=== PATIENT | female | born 1995 | race Caucasian/White ===

== ENCOUNTER 2023-10-16 07:36 | Inpatient (IN) | payer BC ==
[2023-10-16] MEDS ORDERED: Sodium Chloride 0.9% 10 ML Syringe FLUSH PRN (11:53)
[2023-10-16] MEDS ORDERED: Lidocaine 1% 50 ML MDV INJECT PRN (11:53)
[2023-10-16] MEDS ORDERED: Acetaminophen 325 MG Tab PO PRN (11:53)
[2023-10-16] MEDS: Nalbuphine HCl 10 MG/ 1ML Amp IVPUSH PRN (12:04)
[2023-10-16 12:13] LABS: BASOPHILS PERCENT AUTO 0.2 % (0.0-1.0); EOSINOPHILS ABSOLUTE AUTO 0.1 K/mm3 (0.0-0.4); EOSINOPHILS PERCENT AUTO 0.7 % (0.0-6.0); HEMATOCRIT 40.3 % (37.0-47.0); IMMATURE GRAN ABSOLUTE AUTO 0.12 K/mm3 (0.00-0.05); IMMATURE GRAN PERCENT AUTO 0.6 % (0.0-0.4); LYMPHOCYTES ABSOLUTE AUTO 2.1 K/mm3 (1.0-4.8); LYMPHOCYTES PERCENT AUTO 10.5 % (24.0-44.0); MEAN CORPUSCULAR HEMOGLOBIN 30.3 pg (28.0-32.0); MEAN CORPUSCULAR HGB CONC 34.7 g/dl (32.0-36.0); MEAN CORPUSCULAR VOLUME 87.2 fl (83.0-99.0); MEAN PLATELET VOLUME 9.6 fl (9.4-12.3); MONOCYTES ABSOLUTE AUTO 0.8 K/mm3 (0.0-0.8); MONOCYTES PERCENT AUTO 4.1 % (0.0-8.0); NEUTROPHILS PERCENT AUTO 83.9 % (41.0-71.0); PLATELET COUNT,PLT 238 K/mm3 (150-400); RED BLOOD CELL COUNT 4.62 M/mm3 (4.10-5.30); WHITE BLOOD CELL COUNT,WBC 20.27 K/mm3 (3.9-11.3)
[2023-10-16] MEDS: Lactated Ringers 1,000 ML IV SCH (13:58)
[2023-10-16] MEDS ORDERED: Phenylephrine 1% 10 MG/ML SDV IVPUSH PRN (14:26)
[2023-10-16] MEDS ORDERED: ePHEDrine 50 MG/ML SDV IVPUSH PRN (14:26)
[2023-10-16] MEDS ORDERED: diphenhydrAMINE 50 MG/ML SDV IVPUSH PRN (14:26)
[2023-10-16] MEDS: fentaNYL 100 MCG/2 ML SDV EPIDUR PRN (14:30)
[2023-10-16] MEDS: Bupivacaine/fentaNYL/NS 100 ML Bag EPIDUR PRN (14:32)
[2023-10-16] MEDS: fentaNYL 100 MCG/2 ML SDV ONE (17:28)
[2023-10-16] MEDS: Oxytocin/Lactated Ringers 30 UNIT/500 ML BAG IV SCH (22:25)
[2023-10-17] MEDS ORDERED: Magnesium Hydroxide 400 MG/5 ML Susp 30 ML Cup PO PRN (00:15)
[2023-10-17] MEDS ORDERED: Oxytocin/Lactated Ringers 30 UNIT/500 ML BAG IV SCH (00:15)
[2023-10-17] MEDS ORDERED: Hydrocortisone Acetate 25 MG Supp RECTAL PRN (00:15)
[2023-10-17] MEDS ORDERED: Docusate Sodium 100 MG Cap PO PRN (00:15)
[2023-10-17] MEDS: Witch Hazel Medicated Pads 40/Jar TOP PRN (00:36)
[2023-10-17] MEDS: Benzocaine/Menthol 20%-0.5% Spray 78 GM Cannister TOP PRN (00:37)
[2023-10-17] MEDS: Ibuprofen 600 MG Tab PO PRN (04:31)
[2023-10-17] MEDS: Prenatal Multivitamin with Calcium/Folic Acid/Iron Tab PO SCH (09:03)
[2023-10-17] MEDS: Sodium Chloride 0.9% 10 ML Syringe FLUSH SCH (09:03)
[2023-10-17] MEDS: Acetaminophen 325 MG Tab PO PRN (22:39)
== END 2023-10-18 10:20 | disposition home or self-care (01) | DRG 560 ==
LOC: JD.OBCHECK 07:36 → JD.OB 07:40 → JD.OBCHECK 10:45 → JD.OB 10:45 → OBSVTOIN 22:13 → JD.OB 22:14
PROVIDERS: ADMIT Obstetrics & Gynecology; ATTEND Obstetrics & Gynecology
PROC: 10E0XZZ Delivery of Products of Conception, External Approach (ICD-10-PCS; principal; 2023-10-16)
PROC: 0KQM0ZZ Repair Perineum Muscle, Open Approach (ICD-10-PCS; 2023-10-16)
PROC: 10907ZC Drainage of Amniotic Fluid, Therapeutic from Products of Conception, Via Natural or Artificial Opening (ICD-10-PCS; 2023-10-16)
PROC: 3E0R3BZ Introduction of Anesthetic Agent into Spinal Canal, Percutaneous Approach (ICD-10-PCS; 2023-10-16)
PROC: 00HU33Z Insertion of Infusion Device into Spinal Canal, Percutaneous Approach (ICD-10-PCS; 2023-10-16)
DX: O99.52 Diseases of the respiratory system complicating childbirth (principal); J45.909 Unspecified asthma, uncomplicated; Z91.018 Allergy to other foods; Z90.49 Acquired absence of other specified parts of digestive tract; O34.593 Maternal care for other abnormalities of gravid uterus, third trimester; N80.9 Endometriosis, unspecified; Z37.0 Single live birth; Z3A.39 39 weeks gestation of pregnancy; O70.1 Second degree perineal laceration during delivery
CPT/HCPCS: 36415; 51702; 59025; 59409; 85025; 86592; A9270-GY; J2300; J3010; J3490; J7120; J7999

== ENCOUNTER 2024-12-26 22:52 | Inpatient (IN) | payer BC ==
[~2024-12-26 22:52] MED LIST: Lidocaine 1% 10 ML MDV ONE
[2024-12-26] MEDS ORDERED: Lidocaine 1% 50 ML MDV INJECT PRN (23:23)
[2024-12-26] MEDS ORDERED: Ondansetron 4 MG/2 ML SDV IVPUSH PRN (23:23)
[2024-12-26] MEDS ORDERED: Sodium Chloride 0.9% 10 ML Syringe FLUSH PRN (23:23)
[2024-12-26] MEDS ORDERED: Oxytocin/0.9 % Sodium Chloride 30 UNIT/500 ML BAG IV SCH (23:30)
[2024-12-26 23:36] LABS: BASOPHILS PERCENT AUTO 0.3 % (0.0-1.0); EOSINOPHILS ABSOLUTE AUTO 0.4 K/mm3 (0.0-0.4); EOSINOPHILS PERCENT AUTO 2.4 % (0.0-6.0); HEMATOCRIT 39.8 % (37.0-47.0); HEMOGLOBIN 13.6 gm/dl (12.0-16.0); IMMATURE GRAN ABSOLUTE AUTO 0.07 K/mm3 (0.00-0.05); IMMATURE GRAN PERCENT AUTO 0.5 % (0.0-0.4); LYMPHOCYTES ABSOLUTE AUTO 3.2 K/mm3 (1.0-4.8); LYMPHOCYTES PERCENT AUTO 21.2 % (24.0-44.0); MEAN CORPUSCULAR HEMOGLOBIN 29.9 pg (28.0-32.0); MEAN CORPUSCULAR HGB CONC 34.2 g/dl (32.0-36.0); MEAN CORPUSCULAR VOLUME 87.5 fl (83.0-99.0); MEAN PLATELET VOLUME 9.7 fl (9.4-12.3); MONOCYTES ABSOLUTE AUTO 0.8 K/mm3 (0.0-0.8); MONOCYTES PERCENT AUTO 5.6 % (0.0-8.0); NEUTROPHILS ABSOLUTE AUTO 10.5 K/mm3 (1.8-7.7); PLATELET COUNT,PLT 218 K/mm3 (150-400); RED BLOOD CELL COUNT 4.55 M/mm3 (4.10-5.30); WHITE BLOOD CELL COUNT,WBC 14.94 K/mm3 (3.9-11.3)
[2024-12-26] MEDS ORDERED: diphenhydrAMINE 50 MG/ML SDV IVPUSH PRN (23:55)
[2024-12-26] MEDS ORDERED: ePHEDrine 50 MG/ML SDV IVPUSH PRN (23:55)
[2024-12-27] MEDS: Lactated Ringers 1,000 ML IV SCH
[2024-12-27] MEDS: Nalbuphine 10 MG/1 ML Vial IVPUSH PRN (00:04)
[2024-12-27] MEDS: Bupivacaine/fentaNYL/NS 100 ML Bag EPIDUR PRN (00:45)
[2024-12-27] MEDS: Oxytocin/0.9 % Sodium Chloride 30 UNIT/500 ML BAG IV SCH (01:18)
[2024-12-27] MEDS ORDERED: Acetaminophen 325 MG Tab PO PRN (03:32)
[2024-12-27] MEDS ORDERED: Docusate Sodium 100 MG Cap PO PRN (03:32)
[2024-12-27] MEDS ORDERED: Witch Hazel Medicated Pads 40/Jar TOP PRN (03:32)
[2024-12-27] MEDS ORDERED: Benzocaine/Menthol 20%-0.5% Spray 78 GM Cannister TOP PRN (03:32)
[2024-12-27] MEDS: Ibuprofen 600 MG Tab PO SCH (04:34)
[2024-12-27] MEDS ORDERED: Prenatal Multivitamin with Calcium/Folic Acid/Iron Tab PO SCH (09:00)
[2024-12-28] MEDS: Sodium Chloride 0.9% 10 ML Syringe FLUSH SCH (02:05)
== END 2024-12-28 11:30 | disposition home or self-care (01) | DRG 560 ==
LOC: JD.OBCHECK 22:52 → JD.OB 22:52 → JD.OBCHECK 23:23 → JD.OB 23:23 → OBSVTOIN 12-27 01:18 → JD.OB 12-27 01:19
PROVIDERS: ADMIT Family Medicine; ATTEND Family Medicine
PROC: 10E0XZZ Delivery of Products of Conception, External Approach (ICD-10-PCS; principal; 2024-12-27)
PROC: 3E0R3BZ Introduction of Anesthetic Agent into Spinal Canal, Percutaneous Approach (ICD-10-PCS; principal; 2024-12-27)
PROC: 10907ZC Drainage of Amniotic Fluid, Therapeutic from Products of Conception, Via Natural or Artificial Opening (ICD-10-PCS; principal; 2024-12-27)
DX: O99.02 Anemia complicating childbirth (principal); Z86.16 Personal history of COVID-19; Z98.890 Other specified postprocedural states; Z90.49 Acquired absence of other specified parts of digestive tract; Z79.899 Other long term (current) drug therapy; Z3A.37 37 weeks gestation of pregnancy; Z37.0 Single live birth; Z14.1 Cystic fibrosis carrier
CPT/HCPCS: 36415; 59025; 59409; 84112; 85025; 86592; 86850; 86900; 86901; J2003; J2300; J3490; J7120; J7999